=== PATIENT | female | born 1960 | race Caucasian/White ===

== ENCOUNTER 2022-06-07 16:32 | Outpatient (CLI) | payer BC ==
[2022-06-07 17:22] LABS: Hemoglobin 14.9 g/dL (12.0-15.5); Mean Corpuscular HGB CONC 33.7 g/dL (32.0-36.0); Mean Corpuscular Hemoglobin 29.4 pg (27.0-33.0); Mean Corpuscular Volume 87.4 fl (81.6-98.3); Mean Platelet Volume 9.3 fl (7.4-10.4); Platelet Count 327 10x3/uL (150-450); RBC Distribution Width 13.2 % (11.5-14.5); Red Blood Cell (RBC) Count 5.06 10x6/uL (3.90-5.03); White Blood Cell (WBC) Count 7.6 10x3/uL (3.5-10.5)
[2022-06-07 18:04] LABS: Anion Gap 16 mmol/L (10-20); BUN (Urea Nitrogen) 25 mg/dL (9.8-20.1); Calc. Creatinine Clearance 0 mL/min (70-130); Calcium 9.8 mg/dL (7.8-10.44); Carbon Dioxide 26 mmol/L (23-31); Chloride 101 mmol/L (98-107); Estimated GFR 75; Glucose 91 mg/dL (80-115); Potassium 4.1 mmol/L (3.5-5.1); Sodium 139 mmol/L (136-145)
== END 2022-06-07 16:33 | disposition home or self-care (01) ==
LOC: LABBT 16:32
PROVIDERS: ATTEND Surgery
DX: Z01.818 Encounter for other preprocedural examination (principal); K21.9 Gastro-esophageal reflux disease without esophagitis; E78.5 Hyperlipidemia, unspecified; I10 Essential (primary) hypertension; E03.9 Hypothyroidism, unspecified; I25.10 Atherosclerotic heart disease of native coronary artery without angina pectoris; E66.01 Morbid (severe) obesity due to excess calories; Z68.35 Body mass index [BMI] 35.0-35.9, adult
CPT/HCPCS: 80048; 85027; 93005; 93010

== ENCOUNTER 2022-06-12 05:15 | Day surgery (SDC) | payer BC ==
[2022-06-09 10:25] VITALS: BMI 35.0
[2022-06-12] MEDS ORDERED: Scopolamine 1.5 mg/72 hour Patch ONE (06:27)
[2022-06-12] MEDS ORDERED: Bupivacaine/Epinephrine 0.25% 30 ML VIAL ONE (06:45)
[2022-06-12] MEDS ORDERED: fentaNYL PF 100 MCG/2 ML SYRINGE ONE ×2 (07:07→07:08)
[2022-06-12] MEDS ORDERED: Famotidine/PF 20 mg/2ml Vial ONE (07:08)
[2022-06-12] MEDS ORDERED: SUGAMMADEX SODIUM 200 MG/2 ML VIAL ONE (07:08)
[2022-06-12] MEDS ORDERED: cefOXitin 2 GM VIAL ONE (07:23)
[2022-06-12] MEDS ORDERED: Sodium Chloride 0.9% 100 ML ONE (07:23)
[2022-06-12] MEDS ORDERED: Dextrose 5% in Water 1,000 ML IV PRN (07:31)
[2022-06-12] MEDS ORDERED: Ipratropium/Albuterol 3 ML NEB NEB PRN (07:31)
[2022-06-12] MEDS ORDERED: Hydrocodone-Acetamin 15 ML UDCUP PO PRN (07:31)
[2022-06-12] MEDS ORDERED: Dextrose 50% Abboject 50 ML SYRINGE SLOW IVP PRN (07:31)
[2022-06-12] MEDS ORDERED: Promethazine HCl 25 MG/ML VIAL IM PRN (07:31)
[2022-06-12] MEDS ORDERED: Morphine 2 MG/ML VIAL SLOW IVP PRN (07:31)
[2022-06-12] MEDS ORDERED: diphenhydrAMINE 50 MG/ML VIAL IVP PRN (07:31)
[2022-06-12] MEDS ORDERED: hydrALAZINE 20 MG/ML VIAL SLOW IVP PRN (07:31)
[2022-06-12] MEDS ORDERED: Ondansetron PF 4 MG/2 ML Vial IVP PRN (07:31)
[2022-06-12] MEDS ORDERED: Rocuronium Bromide 10 MG/ML (10ML VIAL) ONE (07:34)
[2022-06-12] MEDS ORDERED: Dexamethasone 20 MG/5 ML VIAL ONE (07:34)
[2022-06-12] MEDS ORDERED: Lidocaine 1% PF 5 ML VIAL ONE (07:34)
[2022-06-12] MEDS ORDERED: Ondansetron PF 4 MG/2 ML Vial ONE (07:34)
[2022-06-12] MEDS ORDERED: Glycopyrrolate 0.2 MG/ML 5 ML SYRINGE ONE (07:34)
[2022-06-12] MEDS ORDERED: NEOSTIGMINE 3 MG/3 ML SYR 3 MG/3 ML SYRINGE ONE (07:34)
[2022-06-12] MEDS ORDERED: PROPOFOL 200 MG/20 ML VIAL ONE (07:34)
[2022-06-12] MEDS ORDERED: Ketorolac Tromethamine 30 MG/ML VIAL ONE (07:34)
[2022-06-12] MEDS ORDERED: D5 1/2 NS w/20 mEq KCL 1,000 ML IV SCH (07:45)
[2022-06-12] MEDS ORDERED: Gabapentin 300 MG CAP PO SCH (09:00)
[2022-06-12] MEDS ORDERED: Bupropion 100 MG SR TAB PO SCH (09:00)
[2022-06-12] MEDS ORDERED: Pantoprazole 40 MG VIAL IVP SCH (09:00)
[2022-06-12] MEDS ORDERED: Promethazine HCl 25 MG/ML VIAL ONE (09:35)
[2022-06-12] MEDS ORDERED: Ketorolac Tromethamine 30 MG/ML VIAL IVP SCH (12:00)
[2022-06-12] MEDS ORDERED: Estradiol 1 MG TAB PO SCH (21:00)
[2022-06-13] MEDS ORDERED: Levothyroxine Sodium 125 MCG TAB PO SCH (06:00)
== END 2022-06-12 12:13 | disposition home or self-care (01) ==
LOC: SDC/OP 05:15 → UNDOADMIN 05:58 → SURG A 05:58 → EDSTATUS 09:44 → UNDODISIN 12:13 → SDC/OP 12:13 → EDSTATUS 15:01
PROVIDERS: ATTEND Surgery
PROC: 0FJ Hepatobiliary System and Pancreas, Inspection (ICD-10-PCS; principal; 2022-06-12)
PROC: 0WJG4ZZ Inspection of Peritoneal Cavity, Percutaneous Endoscopic Approach (ICD-10-PCS; principal; 2022-06-12)
DX: E66.01 Morbid (severe) obesity due to excess calories (principal); K86.9 Disease of pancreas, unspecified; I25.10 Atherosclerotic heart disease of native coronary artery without angina pectoris; I10 Essential (primary) hypertension; E78.5 Hyperlipidemia, unspecified; K21.9 Gastro-esophageal reflux disease without esophagitis; Z53.8 Procedure and treatment not carried out for other reasons; Z68.35 Body mass index [BMI] 35.0-35.9, adult; Z79.1 Long term (current) use of non-steroidal anti-inflammatories (NSAID); Z79.82 Long term (current) use of aspirin; Z79.890 Hormone replacement therapy; Z79.899 Other long term (current) drug therapy; Z95.1 Presence of aortocoronary bypass graft; Z20.822 Contact with and (suspected) exposure to COVID-19
CPT/HCPCS: J0694; J1100; J1650; J1885; J2405; J2550; J2704; J3490; S0028; U0003; U0005

== ENCOUNTER 2022-06-20 08:21 | Outpatient (CLI) | payer BC | END 2022-06-20 08:22 | disposition home or self-care (01) | LOC: SCSMRI 08:21 | PROVIDERS: ATTEND Surgery | DX: D37.8 Neoplasm of uncertain behavior of other specified digestive organs (principal); K86.2 Cyst of pancreas | CPT/HCPCS: 74183 ==

== ENCOUNTER 2023-03-08 08:14 | Outpatient (CLI) | payer BC | END 2023-03-08 08:15 | disposition home or self-care (01) | LOC: ULT 08:14 | PROVIDERS: ATTEND Family Medicine | DX: R10.9 Unspecified abdominal pain (principal) | CPT/HCPCS: 76700 ==